=== PATIENT | female | born 1975 | race Caucasian/White ===

== ENCOUNTER 2018-09-21 10:23 | Emergency (ER) | payer OTHER ==
--- NOTE | 2018-09-21 12:14 | ED Physician Documentation ---
History of Present Illness - Stated complaint Stated Complaint: R EYE IRRITATION - Chief complaint Chief Complaint: General - History obtained from History obtained from: Patient - History of Present Illness Timing: Other (About a week ago she developed some swelling of the left upper eyelid and the swelling has progressed around to the eyelid. There is no visual deficit. She does not wear contacts. She also noticed intermittent numbness of the left foot medial side without weakness. Also increased urination but that has been going on for the last year.) Review of Systems Constitutional: denies: Fever, Chills Eyes: denies: Loss of vision, Decreased vision, Photophobia Ears: denies: Loss of hearing, Ear pain Nose: denies: Rhinorrhea / runny nose, Congestion PD PAST MEDICAL HISTORY - Past Medical History Past Medical History: No - Past Surgical History Past Surgical History: No - Present Medications Home Medications: Ambulatory Orders Medication Instructions Recorded Confirmed Clindamycin HCl [Clindamycin 300MG 300 mg PO Q6H #28 capsule 09/21/18 CAP] - Social History Does the pt smoke?: No Smoking Status: Never smoker - Immunizations Immunizations are current?: Yes PD ED PE NORMAL - Vitals Vital signs reviewed: Yes - General General: Alert and oriented X 3, No acute distress - HEENT HEENT: PERRL, EOMI, Other (There is a pointed abscess with mild surrounding cellulitis of the left eyebrow laterally. It was expressed during examination and a culture was sent.) - Neck Neck: Supple, no meningeal sign, No bony TTP - Extremities Extremities: Other (Mildly diminished sensation in the left L4 distribution with intact Achilles and patellar reflexes. Normal strength in flexion and extension of the ankles and at the knees.) - Neuro Neuro: Alert and oriented X 3, Normal speech Results - Vitals Vitals: Vital Signs - 24 hr 09/21/18 10:30 Temperature 36.0 C L Heart Rate 86 Respiratory 14 Rate Blood Pressure 120/79 O2 Saturation 100 Oxygen O2 Source Room air - Labs Labs: Laboratory Tests 09/21/18 12:14 POC Whole Bld Glucose 84 PD MEDICAL DECISION MAKING - ED course ED course: Her main complaint is a small facial abscess that was expressed and cultured. For which she is placed on clindamycin. She also seems to have a left L4 radiculopathy, not much pain with it so I think outpatient follow-up when she gets home is appropriate. The combination of neuropathy though and increased urination prompted the question of potential diabetes but her fingerstick was only 84. Departure - Departure Disposition: 01 Home, Self Care Clinical Impression: Facial abscess Condition: Good Record reviewed to determine appropriate education?: Yes Health Concerns: She has a facial infection Plan of Treatment: We are performing a wound culture, the results should be done in 48-72 hours. If antibiotic change is necessary we will call you. Return if worse in the meantime, especially if you develop increased pain, fevers, cannot keep down the medication. 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 Care Goals: improve infection Assessment: as above Instructions: ED Abscess IandD Prescriptions: Clindamycin HCl [Clindamycin 300MG CAP] 300 mg PO Q6H #28 capsule
[2018-09-21 12:27] VITALS: BP 128/75
== END 2018-09-21 12:25 | disposition home or self-care (01) ==
LOC: ED 10:23
DX: L02.01 Cutaneous abscess of face (principal); L03.211 Cellulitis of face; M54.16 Radiculopathy, lumbar region; R35.0 Frequency of micturition
CPT/HCPCS: 87070; 87181; 87205; 99283